=== PATIENT | female | born 1995 | race Caucasian/White ===

== ENCOUNTER → 2019-05-19 10:00 | Outpatient (BNVA) | payer OTHER, SELFPAY | PROVIDERS: Family Provider Pediatrics Adolescent Medicine; Visit Provider Nurse Practitioner Women's Health | DX: R39.9 Unspecified symptoms and signs involving the genitourinary system (principal) | CPT/HCPCS: 81003; 87086 ==

== ENCOUNTER → 2020-03-21 11:07 | Outpatient (BNVA) | payer OTHER, SELFPAY | PROVIDERS: Family Provider Pediatrics Adolescent Medicine; Visit Provider Nurse Practitioner Family | DX: N39.0 Urinary tract infection, site not specified (principal); R31.9 Hematuria, unspecified | CPT/HCPCS: 81000; 87086 ==

== ENCOUNTER → 2020-05-19 09:20 | Outpatient (BNVA) | payer OTHER, SELFPAY | PROVIDERS: Family Provider Pediatrics Adolescent Medicine; Visit Provider Nurse Practitioner Women's Health | DX: Z11.3 Encounter for screening for infections with a predominantly sexual mode of transmission (principal); Z01.419 Encounter for gynecological examination (general) (routine) without abnormal findings | CPT/HCPCS: 87491; 87591; 87661 ==

== ENCOUNTER → 2021-05-14 14:20 | Outpatient (BNVA) | payer OTHER, SELFPAY | PROVIDERS: Family Provider Pediatrics Adolescent Medicine; Visit Provider Nurse Practitioner Family | DX: Z20.822 Contact with and (suspected) exposure to COVID-19 (principal) | CPT/HCPCS: 87635 ==

== ENCOUNTER → 2021-07-18 15:15 | Outpatient (BNVA) | payer OTHER, SELFPAY | PROVIDERS: Family Provider Pediatrics Adolescent Medicine; Visit Provider Nurse Practitioner Women's Health | DX: Z01.419 Encounter for gynecological examination (general) (routine) without abnormal findings (principal) | CPT/HCPCS: 88175 ==

== ENCOUNTER → 2022-02-13 15:57 | Outpatient (BNVA) | payer OTHER, SELFPAY | PROVIDERS: Family Provider Pediatrics Adolescent Medicine; Visit Provider Family Medicine | DX: R07.9 Chest pain, unspecified (principal); I49.9 Cardiac arrhythmia, unspecified | CPT/HCPCS: 80053; 83735; 84443; 85025 ==

== ENCOUNTER → 2022-03-05 18:03 | Outpatient (BNVA) | payer OTHER, SELFPAY | PROVIDERS: Family Provider Pediatrics Adolescent Medicine; Visit Provider Registered Nurse Neonatal Intensive Care | DX: R50.9 Fever, unspecified (principal) | CPT/HCPCS: 87400 ==

== ENCOUNTER 2022-05-14 15:21 | Outpatient (CLI) | payer OTHER, SELFPAY ==
[2022-05-14 16:07] LABS: D Dimer <= 0.27 ug/mIFEU (0-0.59)
[2022-05-14 16:11] LABS: Troponin T (5th) Once 6 ng/L (0-10)
[2022-05-14 16:19] LABS: Alanine Aminotransferase 26 U/L (0-33); Albumin Level 4.3 g/dL (3.5-5.2); Alkaline Phosphatase 50 U/L (35-105); Aspartate Amino Transferase 21 U/L (0-32); Blood Urea Nitrogen 23 mg/dL (6-20); Calcium 8.9 mg/dL (8.5-10.5); Carbon Dioxide 24 mmol/L (22-29); Chloride 104 mmol/L (98-107); Globulin 2.2 g/dL (1.3-4.6); Glomerular Filtration Rate 150.3 mL/min (90-130); Glucose 82 mg/dL (65-115); NT Pro B Type Natriuretic Pept 36 pg/mL (0-125); Osmolality Calculated 293 mOsm/kg (285-295); Sodium 140 mmol/L (136-145); Total Bilirubin 0.2 mg/dL (0.15-1.2); Total Protein 6.5 g/dL (6.6-8.7)
== END 2022-05-14 15:22 | disposition home or self-care (01) ==
LOC: LAB 15:24
PROVIDERS: PCP Family Medicine; Visit Provider Family Medicine
DX: R00.2 Palpitations (principal); R07.9 Chest pain, unspecified; I49.9 Cardiac arrhythmia, unspecified
CPT/HCPCS: 36415; 80053; 83880; 84484; 85378; 86140

== ENCOUNTER 2022-06-17 11:51 | Outpatient (CLI) | payer OTHER, SELFPAY ==
--- NOTE | 2022-06-17 12:15 | USCV_ITS ---
Marisabel Castellon Age: 26 Gender: F : 1995 Exam Date: 06/17/2022 12:15 Ordering Phys: Bimal Pritchard DO Technologist: Exam Location: [facility] [place] Indication: palp chest pain BP: 84 / 60 HR: 76 Rhythm: Sinus Technical Quality: Adequate MEASUREMENTS (Male / Female) Normal Values 2D ECHO LV Diastolic Diameter PLAX 3.8 cm 4.2 - 5.9 / 3.9 - 5.3 cm LV Systolic Diameter PLAX 2.4 cm IVS Diastolic Thickness 1.0 cm 0.6 - 1.0 / 0.6 - 0.9 cm IVS Systolic Thickness 1.3 cm LVPW Diastolic Thickness 1.0 cm 0.6 - 1.0 / 0.6 - 0.9 cm LVPW Systolic Thickness 1.3 cm LVOT Diameter 2.0 cm LV Ejection Fraction 2D Teich 66.3 % LV Ejection Fraction MOD 2C 79.8 % LV Ejection Fraction 2C AL 79.9 % LA Diameter 2.7 cm IVC Diameter 1.7 cm M-MODE Aortic Annulus Diameter 2.9 cm LA Ao Ratio MM 1.0 DOPPLER AV Peak Velocity 126.0 cm/s LVOT Peak Velocity 97.0 cm/s AV Area Cont Eq vti 2.4 cm squared AV Area Cont Eq pk 2.3 cm squared MV Area PHT 5.0 cm squared Mitral E to A Ratio 1.7 MV E' Velocity 55.5 cm/s Mitral E to MV E' Ratio 6.4 Mitral E to LV E' Lateral Ratio 6.2 Mitral E to LV E' Septal Ratio 6.7 TR Peak Velocity 138.7 cm/s TR Peak Gradient 7.7 mmHg TV Peak E Velocity 84.0 cm/s Right Atrial Pressure 3.0 mmHg Pulmonary Artery Systolic Pressu 10.7 mmHg RV Acceleration Time 0.2 s FINDINGS Left Ventricle Normal left ventricular size and systolic function, EF 72 %. No regional wall motion abnormalities. Right Ventricle The right ventricle is normal in size and function. Right Atrium The right atrium is normal in size. Left Atrium Large atrial a large atrial septal aneurysm measuring 2.6 x 2.3 cm was found to be bulging into the right atrium, occupying most of its cavity Mitral Valve Trace mitral valve regurgitation. Aortic Valve No gross abnormalities noted Tricuspid Valve No gross abnormalities noted Pulmonic Valve No gross abnormalities noted Pericardium No pericardial effusion. Aorta Normal aortic annulus size. IVC Normal inferior vena cava. CONCLUSIONS Normal left ventricular size and systolic function, EF 72 %. No regional wall motion abnormalities. Large atrial septal aneurysm measuring 2.6 x 2.3 cm was found to be bulging into the right atrium, occupying most of its cavity. No obvious [id number]-ykywu shunt with noted Trace mitral valve regurgitation. There is no pericardial effusion. There are no intracardiac masses. No similar previous studies are available for comparison Dr Belen Holt MD [facility] (Electronically Signed) Final Date: 17 June 2022 23:35 S
== END 2022-06-17 11:52 | disposition home or self-care (01) ==
PROVIDERS: PCP Family Medicine; Visit Provider Family Medicine
DX: I49.9 Cardiac arrhythmia, unspecified (principal); R07.9 Chest pain, unspecified
CPT/HCPCS: 80048; 93306

== ENCOUNTER 2022-08-16 10:44 | Day surgery (SDC) | payer OTHER, MEDICAID, SELFPAY ==
[2022-08-07 12:17] VITALS: BMI 17.1
[2022-08-16 10:59] VITALS: BP 103/78; PULSE 88; RESP 18; TEMP 36.4; O2SAT 97
[2022-08-16] MEDS: sodium chloride 0.9% 1,000 ML 30 ML IV (11:10)
--- NOTE | 2022-08-16 11:33 | ANES.PREANE2 ---
Pre-Anesthetic Assessment Height/Weight: Height 1.63 m Weight 45.269 kg Temp Pulse Resp BP Pulse Ox O2 Del Method 97.6 F 88 18 103/78 97 Room Air 08/16/22 10:59 08/16/22 10:59 08/16/22 10:59 08/16/22 10:59 08/16/22 10:59 08/16/22 10:59 Operation Date: 08/16/22 12:00 Proposed Procedures p RASHIDA I25.3 R07.9 R06.02 [id number](Not Applicable) - Susan Osullivan MD Familial anesthetic complications: None Was Beta Hailey taken within 24 hours: Yes Was Clonidine taken within 24 hours: N/A Last intake: Intake Last Liquid Date 08/15/22 Last Liquid Time 22:00 Last Solid Date 08/15/22 Last Solid Time 22:00 Social Alcohol (Social) and No tobacco Exam alert, oriented x 3, clear to auscultation bilaterally and regular rate & rhythm Airway Submandibular: within normal limits (TMJ) Cervical ROM: within normal limits Mallampati: Class II Dentition: chipped History/ROS No significant history except as noted and No significant complaints Pulmonary None reported CV/HEM Stable Angina, Arrythmia and Palpitations CONCLUSIONS ?Normal left ventricular size and systolic function, EF 72 %. No ?regional wall motion abnormalities. ?Large atrial septal aneurysm measuring 2.6 x 2.3 cm was found to ?be bulging into the right atrium, occupying most of its cavity.? ?No obvious mceg-ee-kxlbo shunt with noted ?Trace mitral valve regurgitation. ?There is no pericardial effusion. ?There are no intracardiac masses. ?No similar previous studies are available for comparison Episodes of tachycardia, chest pain, low BP and dizziness None reported Hepatic None reported GI None reported Metabolic None reported Musc/skel Scoliosis Neuropsych Anxiety and Depression Anesthetic Plan ASA status: 2 Anesthesia: Anesthesia Evaluation, General and MAC Risk of > 500 ml blood loss (7ml/kg in children): No Medications/Allergies Home Medications Medication Instructions Recorded Confirmed Last Taken Type metoprolol succinate 25 mg 12.5 mg PO DAILY #45 tabs 06/17/22 08/16/22 08/16/22 Rx tablet,extended release 24 hr potassium chloride 10 mEq 10 meq PO DAILY #30 tabs 06/20/22 08/16/22 08/15/22 Rx tablet,extended release acetaminophen 325 mg tablet 325 mg PO QID PRN Pain 07/31/22 08/16/22 08/14/22 History norgestimate 0.18 mg/0.215 mg/0.25 1 tab PO DAILY 08/16/22 08/16/22 08/15/22 History mg-ethinyl estradiol 25 mcg tablet (Jgv-Hs-Begqdvvc) Allergies Allergy/AdvReac Type Severity Reaction Status Date / Time Penicillins Allergy rash Verified 08/16/22 10:53 Current Medications Generic Name Dose Route Start Last Admin Trade Name Freq PRN Reason Stop Dose Admin Sodium Chloride 1,000 mls @ 30 mls/hr 08/16/22 11:00 08/16/22 11:10 Sodium Chloride 0.9% IV 08/17/22 10:59 30 mls/hr .Q24H KEILA Administration PFSH Anesthesia Medical History (Updated 08/04/22 @ 14:53 by Susan Osullivan MD) Contraception management Depression No pertinent past medical history neghx: htn,dm,thyroid,dvt/pe PCP: None PSVT (paroxysmal supraventricular tachycardia) Sleep disorder Surgical History No history of previous surgery Family History Family/Other Breast cancer Maternal aunt x 3---dx age 70's Grandmother Breast cancer Paternal---dx age unknown Heart disease Maternal Diabetes Paternal Hx of CABG Grandfather No problems noted. Grandmother No problems noted. Mother Hypertension Father Heart attack Cardiac arrest Social History Smoking and tobacco status: never smoked Second hand smoke exposure: No Smoking risk assessment/counseling performed?: No Alcohol intake: current Alcohol intake frequency: few times a month Desire information about alcohol rehabilitation?: No Substance/Drug Use: never Adopted: No Caregiver/support person: No Lives independently: Yes Household members: family Housing: House Marital status: Single Number of children: 0 Highest education level completed: Associate Degree: Occupational, Technical, Vocational Program service: No Current occupational status: employed Current occupation: [employer] Current occupational exposures/hazards: No Pets and animals: No Sexually active: Yes Do you think of yourself as: Straight/Heterosexual Current gender identity: Female Additional social history: Well balanced diet Female Reproductive History Spontaneous abortions: No Data Anesthesia Cardiac Studies: Echocardiogram 06/17/22 Holter Monitor 03/12/22
[2022-08-16 11:51] LABS: OR HCG Qualitative Urine Negative (Negative)
--- NOTE | 2022-08-16 11:56 | W.PM.OPSUD ---
Surgery/Procedure H&P Update DATE OF PROCEDURE: August 16, 2022 DATE H&P PERFORMED: 07/31/22 PLANNED PROCEDURE: Operation Date: 08/16/22 12:00 Proposed Procedures p RASHIDA I25.3 R07.9 R06.02 [id number](Not Applicable) - Susan Osullivan MD
[2022-08-16 12:06] LABS: Anion Gap 13.5 (5-19); Blood Urea Nitrogen 19 mg/dL (6-20); Calcium 8.1 mg/dL (8.5-10.5); Carbon Dioxide 23 mmol/L (22-29); Chloride 106 mmol/L (98-107); Glomerular Filtration Rate 121.8 mL/min (90-130); Glucose 96 mg/dL (65-115); Osmolality Calculated 292 mOsm/kg (285-295); Sodium 140 mmol/L (136-145)
[2022-08-16 12:07] LABS: Potassium 2.5 mmol/L (3.5-5.1)
--- NOTE | 2022-08-16 12:20 | PC.NURSE ---
Lab called with critical K+ level, call placed to Dr Phillips, new orders recieved to administer PO and IV potassium now and reschedule pt RASHIDA appt. Dr Phillips to call in prescription for oral Potassium for at home and pt to get labs drawn on Friday to recheck K+ levels.
[2022-08-16] MEDS: potassium chloride ER 20 mEq Tablet 40 MEQ PO (12:36)
[2022-08-16] MEDS: lidocaine 1% 5 ML in potassium chloride premix 100 ML 52.5 ML IV (12:45)
[2022-08-16 13:31] LABS: Magnesium 2.2 mg/dL (1.7-2.3)
--- NOTE | 2022-08-16 15:14 | PC.NURSE ---
script for potassium called to pharmacy by dr. daniels. pt to pharmacy to [facility]. instructions given to go to lab at [facility] for lab draw.
== END 2022-08-16 15:12 | disposition home or self-care (01) ==
PROVIDERS: Anesthesiology; PCP Family Medicine; Visit Provider Internal Medicine Cardiovascular Disease
DX: I25.3 Aneurysm of heart (principal); Z53.09 Procedure and treatment not carried out because of other contraindication
CPT/HCPCS: 36415; 80048; 81025; 83735; 84703; 96365; 96366; J3480; J7030

== ENCOUNTER 2022-08-19 14:30 | Outpatient (CLI) | payer OTHER, MEDICAID, SELFPAY ==
[2022-08-19 15:26] LABS: Anion Gap 9.6 (5-19); Blood Urea Nitrogen 16 mg/dL (6-20); Calcium 8.2 mg/dL (8.5-10.5); Carbon Dioxide 25 mmol/L (22-29); Chloride 105 mmol/L (98-107); Glomerular Filtration Rate 194.5 mL/min (90-130); Glucose 87 mg/dL (65-115); Osmolality Calculated 285 mOsm/kg (285-295); Sodium 137 mmol/L (136-145)
[2022-08-19 15:37] LABS: Potassium 2.6 mmol/L (3.5-5.1)
== END 2022-08-19 14:31 | disposition home or self-care (01) ==
LOC: LAB 14:32
PROVIDERS: PCP Family Medicine; Visit Provider Internal Medicine Cardiovascular Disease
DX: I47.1 Supraventricular tachycardia (principal); E87.6 Hypokalemia; R00.2 Palpitations
CPT/HCPCS: 36415; 80048; 83735

== ENCOUNTER 2022-08-27 13:35 | Outpatient (CLI) | payer OTHER, MEDICAID, SELFPAY ==
[2022-08-27 14:34] LABS: Anion Gap 12.7 (5-19); Blood Urea Nitrogen 20 mg/dL (6-20); Calcium 8.4 mg/dL (8.5-10.5); Carbon Dioxide 24 mmol/L (22-29); Chloride 106 mmol/L (98-107); Glomerular Filtration Rate 194.5 mL/min (90-130); Glucose 77 mg/dL (65-115); Osmolality Calculated 289 mOsm/kg (285-295); Potassium 3.7 mmol/L (3.5-5.1); Sodium 139 mmol/L (136-145)
== END 2022-08-27 13:36 | disposition home or self-care (01) ==
PROVIDERS: PCP Family Medicine; Visit Provider Internal Medicine Cardiovascular Disease
DX: E87.6 Hypokalemia (principal); I49.9 Cardiac arrhythmia, unspecified
CPT/HCPCS: 80048

== ENCOUNTER 2022-08-30 10:34 | Day surgery (SDC) | payer OTHER, MEDICAID, SELFPAY ==
[2022-08-28 08:48] VITALS: BMI 17.3
--- NOTE | 2022-08-30 10:40 | USCV_ITS ---
Marisabel Castellon Age: 26 Gender: F : 1995 Exam Date: 08/30/2022 11:28 Ordering Phys: Susan Osullivan MD ([email or web address]) Technologist: JOSI Exam Location: [facility] – [place] Indication: Large atrial septal aneurysm BP: / HR: Rhythm: Sinus Technical Quality: Adequate MEASUREMENTS (Male / Female) Normal Values Medications Patient given IV sedation by anesthesia service, for details please refer to the anesthesia report. Complications Intubation easy. Attempts x 3. No blood on probe post procedure. Proc. Components The patient was brought to the RASHIDA examination room in a fasting state after obtaining an informed consent. The RASHIDA probe was passed into the posterior pharynx , mid-esophagus, distal esophagus, and gastric fundus. FINDINGS Left Ventricle Normal left ventricular size, systolic function and wall thickness, with no regional wall motion abnormalities. Left ventricular ejection fraction is estimated at 65 %. Right Ventricle Normal right ventricular size and systolic function. Right Atrium Normal right atrial size. Left Atrium Mildly increased left atrial size. LA Appendage Normal left atrial appendage. Normal flow velocities in the left atrial appendage. No thrombus visualized in the left atrial appendage. IA Septum Large atrial septal aneurysm measuring 2.7 x 1.5 cm bulging into right atrium. No evidence of ASD/PFO based on color doppler/agitated saline (bubble study). Mitral Valve Structurally normal mitral valve. No mitral valve stenosis. Trace mitral valve regurgitation. Aortic Valve Structurally normal trileaflet aortic valve. No aortic valve stenosis. No aortic valve regurgitation. Tricuspid Valve Structurally normal tricuspid valve. No tricuspid valve stenosis. Trace tricuspid valve regurgitation. Pulmonic Valve Structurally normal pulmonic valve. No pulmonary valve stenosis. Trace pulmonary valve regurgitation. Pericardium No pericardial effusion. Aorta No aortic dilation, aneurysm or dissection. CONCLUSIONS 1. Normal left ventricular size, systolic function and wall thickness, with no regional wall motion abnormalities. Left ventricular ejection fraction is estimated at 65 %. 2. Large atrial septal aneurysm measuring 2.7 x 1.5 cm bulging into right atrium. No evidence of ASD/PFO based on color doppler/agitated saline (bubble study). Susan Osullivan MD (Electronically Signed) Final Date: 09 September 2022 04:02 S
[2022-08-30 11:01] LABS: OR HCG Qualitative Urine Negative (Negative)
[2022-08-30 11:06] VITALS: BP 112/72; PULSE 76; RESP 16; TEMP 37; O2SAT 98
[2022-08-30] MEDS: sodium chloride 0.9% 1,000 ML 30 ML IV (11:21)
--- NOTE | 2022-08-30 11:44 | ANES.PREANE2 ---
Pre-Anesthetic Assessment Height/Weight: Height 1.63 m Weight 45.813 kg Temp Pulse Resp BP Pulse Ox O2 Del Method 98.6 F 76 16 112/72 98 Room Air 08/30/22 11:06 08/30/22 11:06 08/30/22 11:06 08/30/22 11:06 08/30/22 11:06 08/30/22 11:06 Operation Date: 08/30/22 12:00 Proposed Procedures p RASHIDA 63064,I25.3,R07.9,R06.02(Not Applicable) - Susan Osullivan MD Familial anesthetic complications: none Was Beta Hailey taken within 24 hours: Yes Was Clonidine taken within 24 hours: N/A Last intake: Intake Last Liquid Date 08/29/22 Last Liquid Time 21:30 Last Solid Date 08/29/22 Last Solid Time 20:30 Social Alcohol (social) and No tobacco Exam alert, oriented x 3, clear to auscultation bilaterally and regular rate & rhythm Airway Submandibular: within normal limits Cervical ROM: within normal limits Mallampati: Class II Dentition: full Pulmonary None reported CV/HEM Arrythmia hypotension None reported Hepatic None reported GI None reported Metabolic None reported Musc/skel scoliosis Neuropsych Anxiety, Depression and Headache Anesthetic Plan ASA status: 2 Anesthesia: MAC Risk of > 500 ml blood loss (7ml/kg in children): No Medications/Allergies Home Medications Medication Instructions Recorded Confirmed Last Taken Type metoprolol succinate 25 mg 12.5 mg PO DAILY #45 tabs 06/17/22 08/28/22 08/28/22 Rx tablet,extended release 24 hr acetaminophen 325 mg tablet 325 mg PO QID PRN Pain 07/31/22 08/28/22 08/28/22 History norgestimate 0.18 mg/0.215 mg/0.25 See Rx Instructions .Route 08/16/22 08/28/22 08/28/22 Rx mg-ethinyl estradiol 25 mcg tablet .COMPLEX #28 tabs ([id number]-Lthqsiqt) potassium chloride 20 mEq 40 meq PO DAILY #180 tabs 08/29/22 Unknown Rx tablet,extended release Allergies Allergy/AdvReac Type Severity Reaction Status Date / Time Penicillins Allergy rash Verified 08/16/22 10:53 Current Medications Generic Name Dose Route Start Last Admin Trade Name Freq PRN Reason Stop Dose Admin Sodium Chloride 1,000 mls @ 30 mls/hr 08/30/22 10:45 08/30/22 11:21 Sodium Chloride 0.9% IV 08/31/22 10:44 30 mls/hr .Q24H KEILA Administration PFSH Anesthesia Medical History (Updated 08/04/22 @ 14:53 by Susan Osullivan MD) Contraception management Depression No pertinent past medical history neghx: htn,dm,thyroid,dvt/pe PCP: None PSVT (paroxysmal supraventricular tachycardia) Sleep disorder Surgical History No history of previous surgery Family History Family/Other Breast cancer Maternal aunt x 3---dx age 70's Grandmother Breast cancer Paternal---dx age unknown Heart disease Maternal Diabetes Paternal Hx of CABG Grandfather No problems noted. Grandmother No problems noted. Mother Hypertension Father Heart attack Cardiac arrest Social History Smoking and tobacco status: never smoked Second hand smoke exposure: No Smoking risk assessment/counseling performed?: No Alcohol intake: current Alcohol intake frequency: few times a month Desire information about alcohol rehabilitation?: No Substance/Drug Use: never Adopted: No Caregiver/support person: No Lives independently: Yes Household members: family Housing: House Marital status: Single Number of children: 0 Highest education level completed: Associate Degree: Occupational, Technical, Vocational Program service: No Current occupational status: employed Current occupation: [employer] Current occupational exposures/hazards: No Pets and animals: No Sexually active: Yes Do you think of yourself as: Straight/Heterosexual Current gender identity: Female Additional social history: Well balanced diet Female Reproductive History Date of last menstrual period: 07/28/22 Spontaneous abortions: No Data Anesthesia Cardiac Studies: Echocardiogram 06/17/22 Holter Monitor 03/12/22
--- NOTE | 2022-08-30 12:18 | W.PM.OPSUD ---
Surgery/Procedure H&P Update DATE OF PROCEDURE: August 30, 2022 DATE H&P PERFORMED: 07/31/22 H&P UPDATE INFORMATION: I have reviewed H&P completed within last 30 days, I have examined patient prior to procedure and No changes to prior documentation PREOP DIAGNOSIS: Large ASA, r/o ASD/PFO PRIMARY INDICATION FOR PROCEDURE: Large ASA, r/o ASD/PFO PLANNED PROCEDURE: Operation Date: 08/30/22 12:00 Proposed Procedures p RASHIDA 81938,I25.3,R07.9,R06.02(Not Applicable) - Susan Osullivan MD
[2022-08-30 12:54] VITALS: BP 91/46; PULSE 76; RESP 12; TEMP 36.5; O2SAT 96
[2022-08-30 13:00] VITALS: BP 95/60; PULSE 80; RESP 14; O2SAT 97
[2022-08-30 13:10] VITALS: BP 105/69; PULSE 78; RESP 18; O2SAT 100
[2022-08-30 13:20] VITALS: BP 100/64; PULSE 75; RESP 18; O2SAT 100
--- NOTE | 2022-08-30 13:45 | ANE.PACU2 ---
Inpatient post-anesthesia follow up: Airway intact: Yes Vital signs: Temperature 97.7 F Pulse Rate 75 Respiratory Rate 18 Blood Pressure 100/64 Pulse Oximetry 100 Oxygen Delivery Me thod Room Air Oxygen Flow Rate Fraction of Inspir ed Oxygen Hydration adequate: Yes Nausea and vomiting: No Pain level: 2 Mental status: Baseline
--- NOTE | 2022-08-30 14:46 | PM.PROC ---
Procedure Note: Procedure: RASHIDA Procedure note Indication: [Large Atrial septal aneurysm, r/o ASD/PFO] Sedation: Propofol by anesthesia The patient was brought down to the GI lab. Procedure was explained to the patient in detail and informed consent was obtained. Timeout was called. After achieving adequate sedation, the probe was inserted on third attempt. No blood on the probe post procedure. Prelim report: [Normal left ventricle size and systolic function. No left atrial or left atrial appendage mass or thrombus visualized. No ASD or PFO identified. Large atrial septal aneurysm] Full report to follow. Patient tolerated the procedure well and initial recovery in GI lab and subsequently was discharged. Coding Level of Care Code Acute Code for Chg Fwd
== END 2022-08-30 13:50 | disposition home or self-care (01) ==
PROVIDERS: Anesthesiology; PCP Family Medicine; Visit Provider Internal Medicine Cardiovascular Disease
PROC: (CPT 93312; principal; 2022-08-30 12:00)
DX: I25.3 Aneurysm of heart (principal); I95.9 Hypotension, unspecified
CPT/HCPCS: 81025; 84703; 93312; 93320; 93325; J2704; J7030

== ENCOUNTER 2023-01-15 14:08 | Emergency (ER) | payer MEDICAID, SELFPAY ==
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
[2023-01-15 14:22] VITALS: BP 121/101; PULSE 109; RESP 20; TEMP 36.6; O2SAT 99; BMI 17.2
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
[2023-01-15] MEDS: morphine 4 mg/mL SDV 1 mL IVP (14:39)
[2023-01-15] MEDS: ondansetron 2 mg/ML SDV 2 mL 4 MG IVP (14:39)
== END 2023-01-15 15:48 | disposition home or self-care (01) ==
PROVIDERS: Emergency Provider Emergency Medicine; PCP Family Medicine
DX: S09.8XXA Other specified injuries of head, initial encounter (principal); M54.50 Low back pain, unspecified; V89.2XXA Person injured in unspecified motor-vehicle accident, traffic, initial encounter
CPT/HCPCS: 70450; 71250; 74176; 96374; 96375; 99285; J2270; J2405

== ENCOUNTER 2023-01-22 09:22 | Outpatient (CLI) | payer MEDICAID, SELFPAY ==
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
== END 2023-01-22 09:23 | disposition home or self-care (01) ==
PROVIDERS: PCP Family Medicine; Visit Provider Family Medicine
DX: M25.461 Effusion, right knee (principal); M25.462 Effusion, left knee; M25.561 Pain in right knee; M25.562 Pain in left knee
CPT/HCPCS: 73560; 73590

== ENCOUNTER 2023-09-17 15:33 | Emergency (ER) | payer MEDICAID, SELFPAY ==
--- NOTE | 2023-09-17 15:43 | ECG_ITS ---
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 Measurements Intervals [place] Rate: 68 P: 72 MT: 145 QRS: 69 QRSD: 86 T: 28 QT: 398 QTc: 425 Interpretive Statements SINUS RHYTHM POSSIBLE LEFT ATRIAL ENLARGEMENT [-0.1mV P-WAVE IN V1/V2] POSSIBLE RIGHT VENTRICULAR CONDUCTION DELAY [RSR (QR) IN V1/V2] NONSPECIFIC ST & T-WAVE ABNORMALITY Compared to ECG 09/16/2017 10:48:20 T-wave abnormality now present Electronically Signed On 09-17-2023 17:10:54 CDT by Chris Bradley M.D. [id number] f
--- NOTE | 2023-09-17 15:43 | XR_ITS ---
WS: [id number] Portable AP upright chest, 09/17/2023 Clinical Data: dyspnea/cough Comparison: Portable chest, 09/16/2017. Findings: No nodules, masses or effusions are seen. The heart is normal. The pulmonary vascularity is not increased. No pneumonia or pneumothorax is seen. There is a dextroscoliosis of the thoracic spin e unchanged. There are monitor leads on the chest wall. XR/XR chest 1V portable [id number] Impression: Negative chest.
--- NOTE | 2023-09-17 15:45 | ED_ITS ---
HPI - Chest Pain 2 General: Chief Complaint: Chest Pain Stated Complaint: chest pain Time Seen by Provider: 09/17/23 15:43 Source: patient Mode of arrival: ambulatory History of Present Illness: 27-year-old female presents emergency ro om with complaint of chest wall pain. She describes a lump under anterior chest wall. Pain is reproducible with palpation on the chest anteriorly. She denies fever sweats chills cough or shortness of breath. She is being worked up for palpitations by cardiology has no rapid heart rates or irregular heartbeat at this time. MD complaint: chest pain Associated symptoms: Deny abdominal pain, dyspnea or fever(s) Review of Systems 2 Const: Denies: fever(s) or chills Card: Denies: chest pain Resp: Denies: dyspnea GI: Denies: abdominal pain : Denies: dysuria, urinary frequency or urinary urgency Musc: Denies: neck pain or back pain Skin/Breast: Denies: rash PFSH ED 2 PFSH: Medical History Psychiatric care PSVT (paroxysmal supraventricular tachycardia) No pertinent past medical history neghx: htn,dm,thyroid,dvt/pe PCP: Francheska Sleep disorder Contraception management Depression Surgical History History of esophagogastroduodenoscopy Family History Family/Other Breast cancer Maternal aunt x 3---dx age 70's Grandmother Breast cancer Paternal---dx age unknown Heart disease Maternal Diabetes Paternal Hx of CABG Grandfather No problems noted. Grandmother No problems noted. Mother Hypertension Father Heart attack Cardiac arrest Social History Smoking and tobacco/nicotine status: never used tobacco/nicotine Alcohol intake: current Alcohol intake frequency: few times a month Female Reproductive History: Spontaneous abortions: No Physical Exam 2 Const: COMMON NORMALS: no acute distress GENERAL APPEARANCE: cooperative and comfortable ORIENTATION/CONSCIOUSNESS: Yes awake, Yes oriented to person, Yes oriented to place and Yes oriented to time HENMT: COMMON NORMALS: normocephalic, atraumatic and hearing grossly normal bilaterally HEAD & SCALP: normocephalic and atraumatic Resp: COMMON NORMALS: normal respiratory effort, No retractions, No use of accessory muscles and clear to auscultation bilaterally AUSCULTATION: clear to auscultation bilaterally Cardio: COMMON NORMALS: regular rate, regular rhythm and No murmurs present (Cardio) RATE: regular rate RHYTHM: regular rhythm GI: COMMON NORMALS: Soft to palpation and No hepatosplenomegaly present A USCULTATION: Yes normoactive bowel sounds PALPATION: Yes Soft to palpation, No Tenderness to palpation present (GI), No Guarding due to palpation present (GI) and Yes No hepatosplenomegaly present Extremity: COMMON NORMALS: normal to inspection, capillary refill normal, no clubbing, cyanosis or edema, no calf tenderness and no pedal edema Neuro: SENSORIUM/ORIENTATION: Yes oriented to person, Yes oriented to place and Yes oriented to time Skin: COMMON NORMALS: no rashes or lesions noted GENERAL SKIN EXAM: no rashes or lesions noted Course 2 Vital Signs: Vital signs: Vital Signs Temperature 98.5 F 09/17/23 18:23 Pulse Rate 75 09/17/23 18:23 Blood Pressure 105/69 09/17/23 18:23 Pulse Oximetry 97 09/17/23 18:23 Oxygen Delivery Me thod Room Air 09/17/23 15:51 MDM - Chest Pain Medical Decision Making Chest pain reproducible with palpation on the anterior wall of the chest along the left sternal border. Patient has very low BMI and ribs and sternum easily palpable pain is immediately overlying costochondral junctions on the left. Treat with anti-inflammatories follow-up as needed labs and imaging reviewed as found on the chart Medical Records I reviewed the patient's medical records. Lab Data I reviewed the patient's lab results. 09/17/23 16:07 09/17/23 16:07 Radiology Impressions Chest X-Ray 09/17/23 15:43 Impression: Negative chest. Laboratory Results WBC 11.03 10^3/uL (3.29-11.43) 09/17/23 16:07 RBC 4.09 10^6/uL (3.85-5.65) 09/17/23 16:07 Hgb 13.10 g/dL (11.27-16.99) 09/17/23 16:07 Hct 37.4 % (36-47) 09/17/23 16:07 MCV 91.4 fl (85-98) 09/17/23 16:07 MCH 32.0 pg (27-33) 09/17/23 16:07 MCHC 35.0 g/dL (30-55) 09/17/23 16:07 RDW 11.9 % (12.1-15.1) L 09/17/23 16:07 Plt Count 290 10^3/cmm (157-399) 09/17/23 16:07 MPV 9.2 fL (7.4-10.4) 09/17/23 16:07 Neut % (Auto) 63.6 % 09/17/23 16:07 Lymph % (Auto) 26.9 % 09/17/23 16:07 Rich % (Auto) 6.3 % 09/17/23 16:07 Eos % (Auto) 2.4 % 09/17/23 16:07 Baso % (Auto) 0.5 % 09/17/23 16:07 Neut # (Auto) 7.01 10^3/uL (1.8-7.7) 09/17/23 16:07 Lymph # (Auto) 3.0 10^3/uL (0.8-4.8) 09/17/23 16:07 Rich # (Auto) 0.7 10^3/uL (0.2-0.9) 09/17/23 16:07 Eos # (Auto) 0.3 10^3/uL (0.0-0.8) 09/17/23 16:07 Baso # (Auto) 0.1 10^3/uL (0.0-0.1) 09/17/23 16:07 Nucleated RBC % (auto) 0 % 09/17/23 16:07 Nucleated RBCs # 0.0 /100WBC 09/17/23 16:07 Sodium 138 mmol/L (136-145) 09/17/23 16:07 Potassium 3.2 mmol/L (3.5-5.1) L 09/17/23 16:07 Chloride 107 mmol/L (98-107) 09/17/23 16:07 Carbon Dioxide 21 mmol/L (22-29) L 09/17/23 16:07 Anion Gap 13.2 (5-19) 09/17/23 16:07 BUN 20 mg/dL (6-20) 09/17/23 16:07 Creatinine 0.6 mg/dL (0.5-0.9) 09/17/23 16:07 GFR Calculation 120.8 mL/min (90-130) 09/17/23 16:07 Glucose 92 mg/dL (65-115) 09/17/23 16:07 Calculated Osmolality 288 mOsm/kg (285-295) 09/17/23 16:07 Calcium 8.6 mg/dL (8.5-10.5) 09/17/23 16:07 Total Bilirubin 0.3 mg/dL (0.15-1.2) 09/17/23 16:07 AST 32 U/L (0-32) 09/17/23 16:07 ALT 31 U/L (0-33) 09/17/23 16:07 Alkaline Phosphatase 45 U/L (35-105) 09/17/23 16:07 Troponin T Baseline < 6 ng/L (0-10) 09/17/23 16:07 Troponin T 120 Minute 6.00 ng/L (0-10) 09/17/23 18:04 Delta Troponin T 0.89180 ABS# (0-10) 09/17/23 18:04 Total Protein 6.6 g/dL (6.6-8.7) 09/17/23 16:07 Albumin 4.4 g/dL (3.5-5.2) 09/17/23 16:07 Globulin 2.2 g/dL (1.3-4.6) 09/17/23 16:07 All radiology interpretation(s) finalized by discharge Discharge Plan Discharge Patient Disposition: Home Clinical Impression: Chest wall pain Condition: Stable Prescriptions: New diclofenac sodium 75 mg tablet,delayed release (DR/EC) 75 mg PO Q12H PRN (Reason: pain) Qty: 20 0RF Discontinued naproxen [Naprosyn] 500 mg tablet 500 mg PO BID PRN (Reason: pain) Qty: 20 0RF No Action azithromycin 250 mg tablet See Rx Instructions PO .COMPLEX Qty: 6 0RF Rx Instructions: take 500 mg today (day 1), then 250 mg for 4 days (days 2-5) PO Qnz-Lh-Srgkguku 0.18/0.215/0.25 mg-25 mcg tablet See Rx Instructions .ROUTE .COMPLEX Qty: 84 3RF Dose Instruction: TAKE ONE TABLET BY MOUTH DAILY Rx Instructions: TAKE ONE TABLET BY MOUTH DAILY acetaminophen 325 mg tablet 325 mg PO QID PRN (Reason: Pain) potassium chloride 20 mEq tablet extended release 40 meq PO DAILY Qty: 180 3RF metoprolol succinate 25 mg tablet extended release 24 hr 12.5 mg PO BID Qty: 90 3RF Rx Instructions: Take 1/2 tab by mouth BID. methocarbamol 750 mg tablet 750 mg PO Q6H PRN (Reason: spasms) Qty: 20 0RF Discharge Orders: Discharge ED (Routine); Ordered 09/17/23 Ordered By: Dru West Referrals: Bimal Pritchard, [Primary Care Provider] - Discharge Diet: Usual diet Discharge Activity: Resume usual activity Patient Instructions: Opioid Safety, Pain Management Activity Restrictions/Additional Instructions: Thank you for choosing [facility] for your healthcare needs today. It is very important that you follow up as instructed or that you return to the Emergency Department should you have concerns or if your condition changes or worsens in any way. Coding Level of Care Code ED Pastry Mixer for Alondra Jackson
[2023-09-17 15:46] VITALS: BP 105/69; PULSE 74; TEMP 36.9; O2SAT 96; BMI 17.5
[2023-09-17 15:51] VITALS: BP 105/69; PULSE 75; O2SAT 97
[2023-09-17 16:18] LABS: Basophils # 0.1 10^3/uL (0.0-0.1); Basophils % 0.5 %; Eosinophils # 0.3 10^3/uL (0.0-0.8); Eosinophils % 2.4 %; Hematocrit 37.4 % (36-47); Lymphocytes % 26.9 %; Mean Corpuscular Volume 91.4 fl (85-98); Mean Platelet Volume 9.2 fL (7.4-10.4); Monocytes # 0.7 10^3/uL (0.2-0.9); Monocytes % 6.3 %; Neutrophils # 7.01 10^3/uL (1.8-7.7); Neutrophils % 63.6 %; Nucleated Red Blood Cells % 0 %; Platelet Count 290 10^3/cmm (157-399); Red Blood Count 4.09 10^6/uL (3.85-5.65); Red Cell Distribution Width 11.9 % (12.1-15.1); White Blood Count 11.03 10^3/uL (3.29-11.43)
[2023-09-17 16:51] LABS: Troponin(5th) Baseline < 6 ng/L (0-10)
[2023-09-17 16:53] LABS: Alanine Aminotransferase 31 U/L (0-33); Albumin Level 4.4 g/dL (3.5-5.2); Alkaline Phosphatase 45 U/L (35-105); Anion Gap 13.2 (5-19); Aspartate Amino Transferase 32 U/L (0-32); Blood Urea Nitrogen 20 mg/dL (6-20); Calcium 8.6 mg/dL (8.5-10.5); Carbon Dioxide 21 mmol/L (22-29); Chloride 107 mmol/L (98-107); Globulin 2.2 g/dL (1.3-4.6); Glomerular Filtration Rate 120.8 mL/min (90-130); Glucose 92 mg/dL (65-115); Osmolality Calculated 288 mOsm/kg (285-295); Potassium 3.2 mmol/L (3.5-5.1); Sodium 138 mmol/L (136-145); Total Bilirubin 0.3 mg/dL (0.15-1.2); Total Protein 6.6 g/dL (6.6-8.7)
--- NOTE | 2023-09-17 17:49 | ECG_ITS ---
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 Measurements Intervals [place] Rate: 65 P: 223 MT: 366 QRS: 68 QRSD: 83 T: 56 QT: 414 QTc: 431 Interpretive Statements SINUS RHYTHM POSSIBLE RIGHT VENTRICULAR CONDUCTION DELAY [RSR (QR) IN V1/V2] Compared to ECG 09/17/2023 15:41:05 T-wave abnormality no longer present Electronically Signed On 09-17-2023 22:45:27 CDT by Chris Bradley M.D. [email or web address]/store/[id number]
[2023-09-17 18:23] VITALS: BP 105/69; PULSE 75; TEMP 36.9; O2SAT 97
[2023-09-17 18:28] LABS: Troponin 5 2HR Delta 0.00001 ABS# (0-10)
== END 2023-09-17 18:25 | disposition home or self-care (01) ==
PROVIDERS: Emergency Provider Family Medicine; PCP Family Medicine
DX: R07.89 Other chest pain (principal); Z68.1 Body mass index [BMI] 19.9 or less, adult
CPT/HCPCS: 36415; 71045; 80053; 84484; 85025; 93005; 96360; 99285

== ENCOUNTER 2023-11-11 10:44 | Outpatient (CLI) | payer MEDICAID, SELFPAY ==
--- NOTE | 2023-11-11 11:00 | MR_ITS ---
WS: [id number] MRI HEAD WITH CONTRAST TECHNIQUE: Sagittal T1, T2 axial, T2 axial FLAIR, axial susceptibility weighted imaging, axial diffus ion weighted images, and coronal T2 images were obtained. Pre and post-T1 axial and post T1 coronal i mages. ADC and FSPGR images. CLINICAL INFORMATION: Concern for MS COMPARISON: CT 01/15/23 FINDINGS: Tiny T1 hyperintense lesion in the posterior pituitary, anterior to the normal posterior pituitary br ight spot suspicious for small Rathke's cleft cyst. This measures approximately 4 mm. Recommend corre lation with pituitary function studies. No evidence of restricted diffusion to suggest acute ischemia. Ventricular system and basal cisterns are patent. No hemosiderin on the susceptibility weighted images. Normal optic chiasm and pituitary i nfundibulum. Temporal lobes and hippocampal formations are normal in appearance. Normal corpus callos um. No suspicious pericallosal lesions. No atrophy of the corpus callosum. No suspicious abnormalitie s in the supratentorial white matter. Normal posterior fossa. Mild polypoid mucosal thickening in the maxillary sinuses. Incidental sera cisterna magna. Minimal low-lying cerebellar tonsils. Normal four th ventricle. Slight anterolisthesis C2 on C3 and C3 on C4. No hydrocephalus. No abnormal gadolinium enhancement. Normal dural venous sinuses. Some of the post g adolinium images degraded due to motion. MR/MR head wo/w con [id number] IMPRESSION: 1. No evidence of restricted diffusion to suggest acute ischemia. 2. No suspicious intracranial signal abnormalities. 3. Tiny T1 hyperintense lesion in the posterior pituitary anterior to the norm al posterior pituitary bright spot suspicious for small Rathke's cleft cyst. Th is measures approximately 4 mm. Recommend correlation with pituitary function s tudies. This can be followed up with MRI of the head without and with gadoliniu m enhancement with pituitary protocol in 3 to 6 months. 4. No abnormal gadolinium enhancement. 5. Mild polypoid mucosal thickening in the maxillary sinuses.
[2023-11-11] MEDS: gadobenate dimeglumine 20 mL vial IV (11:12)
== END 2023-11-11 10:45 | disposition home or self-care (01) ==
LOC: RAD 10:44
PROVIDERS: PCP Family Medicine; Visit Provider Family Medicine
DX: E23.6 Other disorders of pituitary gland (principal); R20.0 Anesthesia of skin; R27.9 Unspecified lack of coordination; H46.9 Unspecified optic neuritis
CPT/HCPCS: 70553

== ENCOUNTER 2023-12-16 13:28 | Outpatient (CLI) | payer MEDICAID, SELFPAY ==
[2023-12-16 14:11] LABS: Anion Gap 13.5 (5-19); Blood Urea Nitrogen 16 mg/dL (6-20); Calcium 8.5 mg/dL (8.5-10.5); Carbon Dioxide 24 mmol/L (22-29); Chloride 107 mmol/L (98-107); Cortisol Random 8.62 ug/dL (2.47-19.5); Free T4 Free Thyroxine 1.19 ng/dL (0.82-1.77); Glucose 88 mg/dL (65-115); Osmolality Calculated 293 mOsm/kg (285-295); Potassium 3.5 mmol/L (3.5-5.1); Sodium 141 mmol/L (136-145); Thyroid Stimulating Hormone 1.61 uIU/mL (0.27-4.20)
[2023-12-16 15:10] LABS: Prolactin 5.52 ng/mL (4.8-23.3)
== END 2023-12-16 13:29 | disposition home or self-care (01) ==
LOC: LAB 13:30
PROVIDERS: PCP Family Medicine; Visit Provider Family Medicine
DX: E87.6 Hypokalemia (principal); E23.7 Disorder of pituitary gland, unspecified
CPT/HCPCS: 36415; 80048; 82533; 84146; 84305; 84439; 84443

== ENCOUNTER → 2024-01-20 11:01 | Outpatient (BNVA) | payer MEDICAID, SELFPAY | PROVIDERS: PCP Family Medicine; Visit Provider Nurse Practitioner Women's Health | DX: R19.09 Other intra-abdominal and pelvic swelling, mass and lump (principal) | CPT/HCPCS: 76830; 76856 ==

== ENCOUNTER → 2024-02-26 13:55 | Outpatient (BNVA) | payer OTHER, SELFPAY | PROVIDERS: PCP Family Medicine; Visit Provider Orthopaedic Surgery | DX: M54.9 Dorsalgia, unspecified (principal); G89.29 Other chronic pain; M54.41 Lumbago with sciatica, right side; M54.42 Lumbago with sciatica, left side | CPT/HCPCS: 72070; 72110 ==

== ENCOUNTER 2024-03-12 11:21 | Outpatient (RCR) | payer MEDICAID, SELFPAY | END 2024-04-09 23:59 | disposition home or self-care (01) | LOC: SPT 11:21 | PROVIDERS: Visit Provider Orthopaedic Surgery | DX: M54.9 Dorsalgia, unspecified (principal); G89.29 Other chronic pain | CPT/HCPCS: 97110; 97161 ==

== ENCOUNTER 2024-04-30 13:21 | Outpatient (RCR) | payer MEDICAID, SELFPAY | END 2024-05-03 08:18 | disposition home or self-care (01) | LOC: SPT 13:21 | PROVIDERS: PCP Family Medicine; Visit Provider Orthopaedic Surgery | DX: M54.9 Dorsalgia, unspecified (principal); G89.29 Other chronic pain | CPT/HCPCS: 97110 ==

== ENCOUNTER 2024-07-02 12:38 | Outpatient (CLI) | payer MEDICAID, SELFPAY ==
--- NOTE | 2024-07-02 13:00 | MR_ITS ---
WS: [id number] MRI BRAIN WITHOUT AND WITH CONTRAST, ATTENTION DIRECTED TO THE PITUITARY GLAND HISTORY: E23.7 - Disorder of pituitary gland, unspecified COMPARISON: 11/11/2023 TECHNIQUE: Diffusion-weighted imaging, axial T2 sequence, and postcontrast images in 3 planes are performed. High-resolution coronal and sagittal imaging performed through the pituitary region with and without intravenous gadolinium. MultiHance 10 mL IV. Reidentified is the T1 hyperintense lesion in the posterior dorsum sellae abutting the pituitary gland measuring 4.6 mm. There is no significant enhancement and no obvious increase in size since 11/11/2023. No displacement of the infundibulum or optic chiasm. Normal diffusion imaging. No acute infarct. No volume loss or atrophy. No prior infarct. Normal ventricles and extra-axial spaces. Normal posterior fossa. Incidental sera cisterna magna. Very mild cerebellar ectopia. Normal hippocampal formations. No intracranial mass identified. No vascular malformations. Polypoid-like masses fill a large portion of the maxillary sinuses. Mastoid air cells are clear. MR/MR pituitary wo/w con* [id number] IMPRESSION: 1. Stable 4.6 mm T1 hyperintense lesion in the posterior pituitary gland. Very similar to the prior examination of 11/11/2023. Differential differential remain s the same including small Rathke cleft cyst with proteinaceous debris. Conside r MRI pituitary gland reevaluation in 6 months to document long-term stability. 2. Otherwise MRI brain is negative. 3. Polypoid mucosal thickening in the maxillary sinuses.
[2024-07-02] MEDS: gadobenate dimeglumine 20 mL vial 10 ML IV (13:33)
== END 2024-07-02 12:39 | disposition home or self-care (01) ==
PROVIDERS: PCP Family Medicine; Visit Provider Family Medicine
DX: E23.6 Other disorders of pituitary gland (principal); J34.89 Other specified disorders of nose and nasal sinuses; R93.0 Abnormal findings on diagnostic imaging of skull and head, not elsewhere classified
CPT/HCPCS: 70553; A9577

== ENCOUNTER → 2024-09-29 16:34 | Outpatient (BNVA) | payer MEDICAID, SELFPAY | PROVIDERS: PCP Family Medicine; Visit Provider Nurse Practitioner Women's Health | DX: Z12.4 Encounter for screening for malignant neoplasm of cervix (principal) | CPT/HCPCS: 88175 ==

== ENCOUNTER → 2024-12-08 12:35 | Outpatient (BNVA) | payer MEDICAID, SELFPAY | PROVIDERS: PCP Family Medicine; Referring Provider Family Medicine; Visit Provider Internal Medicine | DX: R07.9 Chest pain, unspecified (principal); R94.31 Abnormal electrocardiogram [ECG] [EKG] | CPT/HCPCS: 93005 ==

== ENCOUNTER → 2024-12-09 13:15 | Outpatient (BNVA) | payer MEDICAID, SELFPAY | PROVIDERS: PCP Family Medicine; Visit Provider Family Medicine | DX: E55.9 Vitamin D deficiency, unspecified (principal); F33.1 Major depressive disorder, recurrent, moderate; I49.9 Cardiac arrhythmia, unspecified; R00.2 Palpitations; I47.10 Supraventricular tachycardia, unspecified; R79.89 Other specified abnormal findings of blood chemistry | CPT/HCPCS: 80053; 82306; 82607; 82728; 83540; 83735; 84439; 84443; 85025 ==

== ENCOUNTER 2025-01-06 06:47 | Outpatient (CLI) | payer MEDICAID, SELFPAY ==
--- NOTE | 2025-01-06 07:00 | USCV_ITS ---
Marisabel Castellon Age: 29 Gender: F : 1995 Exam Date: 01/06/2025 07:17 Ordering Phys: Chris Bradley M.D ([email or web address]) Technologist: DANIEL [place] [facility] [place] SoB. Known atrial septum aneurysm BP: 108 / 66 HR: 90 Rhythm: Sinus Technical Quality: Adequate MEASUREMENTS (Male / Female) Normal Values 2D ECHO LV Diastolic Diameter PLAX 4.4 cm 4.2 - 5.9 / 3.9 - 5.3 cm IVS Diastolic Thickness 0.4 cm 0.6 - 1.0 / 0.6 - 0.9 cm IVS Systolic Thickness 0.7 cm LVPW Diastolic Thickness 0.8 cm 0.6 - 1.0 / 0.6 - 0.9 cm LVPW Systolic Thickness 0.8 cm LVOT Diameter 2.0 cm LV Ejection Fraction 2D Teich 42.2 % LV Ejection Fraction MOD 4C 56.1 % LV Ejection Fraction MOD 2C 56.5 % LV Ejection Fraction 2C AL 56.9 % LA Diameter 2.1 cm RA Systolic Volume 4C AL 20.3 ml RA Systolic Volume 4C MOD 18.6 ml LA Sys Volume AL 22.1 cm cubed LA Sys Volume Index AL 15.4 cm cubed/m squared Aorta at Sinotubular Diameter 1.9 cm IVC Diameter 1.4 cm M-MODE LA Ao Ratio MM 1.2 AV Cusp Separation MM 1.4 cm DOPPLER AV Peak Velocity 123.0 cm/s LVOT Peak Velocity 97.0 cm/s AV Area Cont Eq vti 2.8 cm squared AV Area Cont Eq pk 2.5 cm squared MV Peak Velocity 116.0 cm/s MV Area PHT 6.3 cm squared Mitral E to A Ratio 1.1 TR Peak Velocity 117.0 cm/s TR Peak Gradient 5.5 mmHg TV Peak E Velocity 79.0 cm/s PV Peak Velocity 91.0 cm/s FINDINGS Left Ventricle Normal left ventricular size, systolic function and wall thickness, with no regional wall motion abnormalities. Left ventricular ejection fraction is estimated at 60 %. Normal diastolic function. Right Ventricle Normal right ventricular size and systolic function. Right Atrium Normal right atrial size. Left Atrium Normal left atrial size. IA Septum Normal appearance of the interatrial septum. Mitral Valve Structurally normal mitral valve. No mitral valve stenosis. Trace mitral valve regurgitation. Aortic Valve Mild aortic valve calcification. No aortic valve stenosis. Trace aortic valve regurgitation. Tricuspid Valve Structurally normal tricuspid valve. No tricuspid valve stenosis. Trace tricuspid valve regurgitation. Pulmonic Valve Normal pulmonic valve structure. No pulmonic valve stenosis or regurgitation. Pericardium No pericardial effusion. Aorta Normal diameter of the aortic root and ascending thoracic aorta. IVC Normal IVC diameter. CONCLUSIONS Normal left ventricular size, systolic function and wall thickness, with no regional wall motion abnormalities. Left ventricular ejection fraction is estimated at 60 %. Normal diastolic function. There is no pericardial effusion. No significant valvular abnormalities. Right atrial pressure is around 5 mm of mercury. James Shukla MD (Electronically Signed) Final Date: 11 January 2025 18:08 S
== END 2025-01-06 06:48 | disposition home or self-care (01) ==
LOC: RAD 06:47
PROVIDERS: PCP Family Medicine; Visit Provider Internal Medicine
DX: R06.02 Shortness of breath (principal); I35.8 Other nonrheumatic aortic valve disorders
CPT/HCPCS: 93306